=== PATIENT | male | born 1990 | race Caucasian/White ===

== ENCOUNTER 2017-03-29 10:15 | Emergency (ER) | payer BC ==
[~2017-03-29] VITALS: Ht 177.8 cm; Wt 74.8 kg
[~2017-03-29 10:15] MED LIST: AMOXICILLIN 50500 MG PO; DELTASONE5 MG PO; FLEXERIL10 MG PO; IBUPROFEN 600M600 MG PO; LOMOTIL 2.5MG.2.5 MG PO; NAPROSYN500 M1 PO; NOMEDS; NOMEDS XX; PREDNISONE 20MG20 MG PO; ZOFRAN ODT4 MG PO
[2017-03-29] MEDS ORDERED: BROMFED DM COU118 ML PO (10:31)
--- NOTE | 2017-03-29 10:32 | Urgent Treatment Center Report ---
History of Present Issue Date/Time Seen by Provider 03/29/17 1022 Visit Reason Pt arrived:Walked Presenting Problem:PRESENTS WITH SORE THROAT, COUGH, RT EAR PAIN X 3 DAYS Location if Accident: Onset of symptoms date/time:/ or onset unknown for:MEDICAL HX UNKNOWN Have you (or family members/close friends) recently traveled outside the [place]? N If Yes, where/when: Have you had exposure to infectious disease within the past month? TB? Other? Specify: c/o sore throat, cough, rt ear pain x 3 days. Robitussin and cough drops not helping. No known sick contacts at home. Source patient Exam Limitations no limitations ALLERGIES Coded Allergies: No Known Allergies (09/18/16) Home Medications Reported Medications No Home Medications (NO HOME MEDICATIONS) 1 EACH XX ONCE History Medical History General CAD? No Angina: No MO: No Hypertension? No Hyperlipidemia? No CHF? No DVT? No PE? No COPD? No Asthma? No Anemia? No GERD? No Gastric ulcers? No GI Bleed? No Hernia? No Thyroid Problems? No Hypothyroidism? No CVA? No Seizures? No Diabetes? No Renal Insuffiency? No UTI? No Stones? No BPH? No GB Disease: No Nephritic Syndrome? No Asplenia? No Hepatitis? No Sickle Cell Disease? No Arthritis? No Migraines? No Cataracts? No Glaucoma? No MRSA? No HIV? No TB? No Anxiety? No Depression? No Cancer? No Immunization HX DT/Tetanus UNKNOWN Surgical Hx Previous Surgery?Y L EYE Social History Smoking Hx Smoker: Never Smoker Tobacco: No Packs/day N/A Alcohol Alcohol: No Review of Systems All Other Systems Reviewed and Negative Constitutional see HPI, denies chills, denies fever, denies malaise Eyes denies drainage ENT see HPI. denies: ear discharge, nose discharge, nose congestion, throat swelling. Respiratory cough (nonprod), denies shortness of breath, denies wheezing Cardiovascular denies chest pain Gastrointestinal denies no symptoms reported Musculoskeletal denies joint pain Skin denies rash Psychiatric/Neurological denies headache Physical Exam Vital Signs Vital Signs Date Time Temp Pulse Resp B/P Pulse O2 O2 Flow FiO2 Ox Delivery Rate 03/29 1024 98.1 84 18 106/70 100 General Appearance normal appearance, no apparent distress Ear, Nose, Throat normal ENT inspection Neck non-tender, supple Respiratory Status Yes: non productive cough. No: respiratory distress, use of accessory muscles. Lung Sounds anterior: lungs clear. posterior: lungs clear. bilateral: lungs clear. Cardiovascular regular rate/rhythm, no peripheral edema, no murmur Neurologic alert, oriented x 3 Skin normal color, warm/dry Lymphatic no adenopathy Medical Decision Making LABS/Meds/Orders Pt receiving controlled substance in ED? No Departure Departure Time of Disposition 1029 Disposition DC Home or Self Care(routine) Clinical Impression Primary Impression: Upper respiratory infection, viral Condition STABLE Referrals NO REFERRAL IMMEDIATELY for new or worsening symptoms OR no noticeable improvement over the next 72 hours. 911 for difficulty breathing or swallowing. Patient Instructions DI for Viral Upper Respiratory Infection -- Adult Additional Instructions * No sign of bacterial infection. Likely viral. Virus can take 7-14 days to run their course * Monitor Temp. Tylenol every 4 hours as needed no more then 5 times a day or 4000mg in 24 hours and/or ibuprofen every 6 hours as needed no more then 3200mg in 24 hours (as long as your primary care doctor has told you that it is ok to take both) for fever/aches/pain. ER if fever no less than 101 despite tylenol and ibuprofen * Encourage fluids, water, gatorade, powerade, pedialyte if infant/toddler/child * warm salt water gargles * warm fluids * sore throat lozenges (chloraseptic or cephacol) * sleep elevated * humidifier/vaporizer * Bromfed may cause drowsiness. Know how it effects you (or your child) before driving, caring for small children, or sending your child to school. No other antihistamines/allergy medications while taking bromfed. Discharge Counseling Counseled pt/family regarding diagnosis, medications/RX, home care, follow up needs Prescriptions Current Visit Scripts D-METHORPHAN HB/P-EPD HCL/BPM (Bromfed Dm Cough Syrup) 10 ML PO QIDP PRN cough #240 ML at 1033
--- OUTSIDE RECORDS SUMMARY | 2017-03-29 10:33 | External Medical Summary Rpt | CCD ---
Author Author , JEB RUSS Address Unknown Phone [email or web address] Immunization Name Date Rout CVX Reac Dose Comm Prov Is Faci e tion ent ider Refu lity Give sed n Td 08-1 9 999 Hist H149 No H149 (shannon 2-20 ori lt), 04 al Info adso rmat rbed ion - Sour ce Unsp ecif ied
--- OUTSIDE RECORDS SUMMARY | 2017-03-29 10:33 | External Medical Summary Rpt | CCD ---
Author Author , JEB RUSS Address Unknown Phone [email or web address] Care Team Providers Care Mobile Ui/Ux Designer Name Role Phone Crystal Mcqueen MD, Unavailable Unavailable Crystal Mcqueen MD Purpose Continuity of Care Document - 11-11-2012 through 2016 Problems Code Diagnosis DOS Provider Status 847.0 847.0 05-18-2013 Tk SPRAIN [facility] 847.2 847.2 05-18-2013 Tk SPRAIN [facility] REGION 850.0 850.0 05-18-2013 Tk CONCUSSION [facility] W/O [facility] E816.0 E816.0 LOSS 05-18-2013 Tk [facility] E[facility]49[facility]5 E849.5 05-18-2013 Tk ACCID ON [facility] WAY J02.9 ACUTE PHARYNGITIS , UNSPECIFIED N28.9 DISORDER OF KIDNEY AND URETER, UNSPECIFIED R07.9 CHEST PAIN, UNSPECIFIED R09.1 PLEURISY R51 HEADACHE Allergies, Adverse Reactions, Alerts Type Drug Allergy Adverse Reaction to Substance Substance Reaction Severity No Known Drug Unknown Unknown Allergies Medications Na ND Rx Da Fi Fi Am Da Di Ph RX Ph St me C No te ll ll ou ys ag ar # ys at rm s nt no ma ic us Or Da si cy ia de te s n re d AC 51 01 0 No ET 07 -2 AM 90 5- Lo IN 16 20 ng OP 19 14 er HE 9H N Ac W/ ti CO ve DE IN E #3 TA K Vital Signs 05-18-2013 04:34 Name Value Interpretat Reference Comment ion Range BP 83 mm[Hg] Diastolic BP Systolic 127 mm[Hg] Heart 66 /min Rate/Pulse O2% 99 % Respiratory 20 /min Rate 05-18-2013 04:11 Name Value Interpretat Reference Comment ion Range BP 83 mm[Hg] Diastolic BP Systolic 127 mm[Hg] Heart 66 /min Rate/Pulse O2% 99 % Respiratory 20 /min Rate Encounters Encounter Start End Date Code Location Performer Type Date Emergency KASSIE Mcqueen MD (ER) 4 03:13 4 04:34 [facility]
--- OUTSIDE RECORDS SUMMARY | 2017-03-29 10:33 | External Medical Summary Rpt | CCD ---
Author Author , JEB RUSS Address Unknown Phone [email or web address]) Immunization Name Date Rout CVX Reac Dose Comm Prov Is Faci e tion ent ider Refu lity Give sed n Td 08-1 9 999 Hist H149 No H149 (shannon 2-20 ori lt), 04 al Info adso rmat rbed ion - Sour ce Unsp ecif ied
--- OUTSIDE RECORDS SUMMARY | 2017-03-29 10:33 | External Medical Summary Rpt ---
Author Author JEB Amador, [employer] Organization [employer] Address Unknown Phone Unavailable Results Fibrin D-dimer FEU [Mass/volume] in Platelet poor plasma Observa Value Referen Units Interpr Notes Date tion ce etation Range Fibrin 0 - 400 ng/mL Normal The September 18 D-dimer D-Dimer 2016 9:05 FEU values PM [Mass/vol are ume] in presented Platelet in units poor of plasma mass(ng/m L) ofD-Dimer units(DDU ).This test has been FDA approved as an aid in the assessmen tand evaluatio n of suspected DIC, and thromboem bolic eventsinc luding PE and DVT. However, it does not have approvalf or cut-off values for the exclusion of these condition s. CBC W Auto Differential panel in Blood Observa Value Referen Units Interpr Notes Date tion ce etation Range Basophils 0 - 0.2 K/MM3 Normal No September 18 inform2016 9:05 [#/volume on in PM ] in source Blood by data Automated count Basophils 0.1 - 2.0 % Normal No September 18 informati 2016 9:05 leukocyte on in PM s in source Blood by data Automated count Eosinophi 0.0 - 0.4 K/mm3 High No September 18 ls informati 2016 9:05 [#/volume on in PM ] in source Blood by data Automated count Eosinophi 0.1 - % Normal No September 18 ls/100 12.0 informati 2016 9:05 leukocyte on in PM s in source Blood by data Automated count Granulocy 1.3 - 8.0 K/mm3 Normal No September 18 rivera informati 2016 9:05 [#/volume on in PM ] in source Blood by data Automated count Granulocy 37.0 - % Normal No September 18 rivera/100 80.0 informati 2016 9:05 leukocyte on in PM s in source Blood by data Automated count Hematocri 42.0 - % Normal No September 18 t [Volume 52.0 informati 2016 9:05 on in PM Fraction] source of Blood data Hemoglobi 14.1 - g/dL Normal No September 18 n 18.0 informati 2016 9:05 [Mass/vol on in PM ume] in source Blood data Lymphocyt 0.7 - 4.5 K/mm3 Normal No September 18 es informati 2016 9:05 [#/volume on in PM ] in source Unspecifi data ed specimen by Automated count Lymphocyt 10 - 50 % Normal No September 18 es informati 2016 9:05 [#/volume on in PM ] in source Unspecifi data ed specimen by Automated count Erythrocy 27 - 31.2 pg Normal No September 18 te mean informati 2016 9:05 corpuscul on in PM ar source hemoglobi data n [Entitic mass] Erythrocy 31.8 - g/dl Normal No September 18 te mean 35.4 informati 2016 9:05 corpuscul on in PM ar source hemoglobi data n concentra tion [Mass/vol ume] by Automated count Erythrocy 82.2 - fl Normal No September 18 te mean 97.8 informati 2016 9:05 corpuscul on in PM ar volume source [Entitic data volume] by Automated count Monocytes 0.1 - 1.0 K/mm3 Normal No September 18 informati 2016 9:05 [#/volume on in PM ] in source Blood by data Automated count Monocytes 1.7 - 9.3 % Normal No September 18 /100 informati 2016 9:05 leukocyte on in PM s in source Blood by data Automated count Platelet 7.4 - fl Low No September 18 mean 10.4 informati 2016 9:05 volume on in PM [Entitic source volume] data in Blood by Automated count Platelets 142 - 424 K/mm3 Normal No September 18 informati 2016 9:05 [#/volume on in PM ] in source Blood data Erythrocy 4.6 - 6.2 M/mm3 Normal No September 18 rivera informati 2016 9:05 [#/volume on in PM ] in source Amniotic data fluid Erythrocy 11.5 - % Normal No September 18 te 17.5 informati 2016 9:05 distribut on in PM ion width source [Entitic data volume] by Automated count Leukocyte 4.8 - K/MM3 Normal No September 18 s 10.8 informati 2016 9:05 [#/volume on in PM ] in source Blood data XR LUMBAR SPINE AP AND LATERAL Observa Value Referen Units Interpr Notes Date tion ce etation Range Three No No No No Nov 11 views informa informa informa informa 2013 lumbar tion in tion in tion in tion in 12:57 spine source source source source PM date data data data data 11/12/19 13 time 1252 para history back pain.\. br\\.br \FINDIN GS: Alignme nt is intact. There is mild wedging of the T12 and L1\.br\ vertebr al bodies. This\.b r\is nonspec ific and could represe nt mild edwardo jemma fractur es. Age is\.br\ indeter minate. Otherwi se\.br\ vertebr al body heights are maintai holley. No high-gr stephie degener ative changes .\.br\\ .br\IMP RESSION : Mild wedging of the T12 and L1 vertebr al bodies. These could\. br\pote ntially represe nt\.br\ mild edwardo jemma fractur es of uncerta in age. The ER physici ans been\.b r\notif ied of this reading .
--- OUTSIDE RECORDS SUMMARY | 2017-03-29 10:33 | External Medical Summary Rpt | CCD ---
Author Author , JEB RUSS Address Unknown Phone Care Team Providers Care Grinding Wheel Inspector Name Role Phone Crystal Mcqueen MD, Unavailable Unavailable Crystal Mcqueen MD Purpose Continuity of Care Document - 11-11-2012 through 2016 Problems Code Diagnosis DOS Provider Status 847.0 847.0 05-18-2013 Tk SPRAIN [facility] 847.2 847.2 05-18-[address] [facility] REGION 850.0 850.0 05-18-[address] [facility] W/O [facility] E816.0 E816.0 LOSS 05-18-2013 [facility]k [facility] E[facility]49[facility]5 E849.5 05-18-2013 Tk ACCID ON [facility] WAY J02.9 ACUTE PHARYNGITIS , UNSPECIFIED [...] Date Code Location Performer Type Date Emergency KSASIE Mcqueen MD (ER) 4 03:13 4 04:34 [facility]
--- OUTSIDE RECORDS SUMMARY | 2017-03-29 10:33 | External Medical Summary Rpt | CCD ---
Author Author JEB Address Unknown Phone [email or web address] Purpose Continuity of Care Document - through 2016
--- OUTSIDE RECORDS SUMMARY | 2017-03-29 10:33 | External Medical Summary Rpt | CCD ---
Author Author JEB Address Unknown Phone [email or web address] Purpose Continuity of Care Document - through 2016
[2017-03-29 10:40] VITALS: BP 106/70
== END 2017-03-29 10:41 | disposition home or self-care (01) ==
LOC: UTC 10:15
DX: J06.9 Acute upper respiratory infection, unspecified (principal)